=== PATIENT | female | born 1945 | race Caucasian/White ===

== ENCOUNTER 2020-07-23 12:06 | Inpatient (IN) | payer MEDICARE ==
[~2020-07-23] VITALS: Ht 165.1 cm; Wt 83.5 kg
[2020-07-23] MEDS ORDERED: Aspirin EC81 MG PO (12:18)
[2020-07-23 12:41] LABS: BASOPHILS ABSOLUTE AUTO 0.08 K/mm3 (0.00-0.23); BASOPHILS PERCENT AUTO 1 % (0-2); EOSINOPHILS ABSOLUTE AUTO 0.07 K/mm3 (0.00-0.68); EOSINOPHILS PERCENT AUTO 1 % (0-6); Hematocrit 26.7 % (33.0-51.0); Hemoglobin 8.1 g/dL (11.5-16.0); IMMATURE GRAN ABSOLUTE AUTO 0.05 K/mm3 (0.00-0.10); IMMATURE GRAN PERCENT AUTO 1 % (0-1); LYMPHOCYTES ABSOLUTE AUTO 0.78 K/mm3 (0.84-5.20); LYMPHOCYTES PERCENT AUTO 9 % (21-46); MONOCYTES ABSOLUTE AUTO 0.54 K/mm3 (0.16-1.47); MONOCYTES PERCENT AUTO 6 % (4-13); Mean Corpuscular HGB 27.7 pg (26.0-34.0); Mean Corpuscular HGB Conc 30.3 g/dL (31.5-36.5); Mean Corpuscular Volume 91 fL (80-100); Mean Platelet Volume 9.5 fL (9.1-12.4); NEUTROPHILS ABSOLUTE AUTO 7.38 K/mm3 (1.96-9.15); NEUTROPHILS PERCENT AUTO 83 % (41-73); Platelet Count 607 K/mm3 (150-400); RDW Coefficient Variation 17.4 % (11.7-14.2); RDW Standard Deviation 58.4 fL (35.1-46.3); Red Blood Cell Count 2.92 M/mm3 (3.80-5.20)
[2020-07-23 13:02] LABS: Alanine Aminotransfer (ALT/SGP 19 U/L (12-78); Albumin, Blood 2.8 g/dL (3.4-5.0); Albumin/Globulin Ratio 0.7 (0.8-1.8); Alk Phos 104 U/L (50-136); Anion Gap 9 mmol/L (6-16); Aspartate Aminotrans (AST/SGOT 15 U/L (12-37); Bilirubin, Total 0.2 mg/dL (0.1-1.0); Blood Urea Nitrogen 12 mg/dL (8-24); Bun/Creatinine Ratio 21.2 (12.0-20.0); CO2, Blood 24 mmol/L (21-32); Chloride, Blood 105 mmol/L (98-108); Creatinine, Blood 0.57 mg/dL (0.40-1.00); Globulin, Blood 4.1 g/dL (2.2-4.0); Glomerular Filtration Rate >60 (60-); Glucose, Blood 140 mg/dL (70-99); Potassium, Blood 3.3 mmol/L (3.5-5.5); Sodium, Blood 138 mmol/L (136-145); Total Protein, Blood 6.9 g/dL (6.4-8.2); Troponin I 0.063 ng/mL (0.000-0.040)
[2020-07-23 14:23] LABS: International Normalized Ratio 1.01; Prothrombin Time Results 10.8 Sec (9.7-11.5)
--- NOTE | 2020-07-23 16:36 | NUR ---
Echocardiogram completed.
[2020-07-23 16:40] LABS: Influenza A, PCR NEGATIVE (NEGATIVE); Influenza B, PCR NEGATIVE (NEGATIVE); Resp Syncytial Virus, PCR NEGATIVE (NEGATIVE); SARS-Cov-2 (COVID-19) PCR, MMC NEGATIVE (NEGATIVE)
[2020-07-23 16:47] LABS: Percent Saturation 5.5 % (15.0-50.0)
[2020-07-23] MEDS ORDERED: ERGO400 PO (21:28)
[2020-07-23] MEDS ORDERED: OMEP20ER PO (21:30)
--- NOTE | 2020-07-23 23:48 | NUR ---
ARRIVAL TO ICU 2 PT ARRIVED TO ICU 2 AT 2049 VIA ED BED AND TRANSFERED TO ICU BED VIA SLIDE SHEET. PT IMMEDIATLY NEEDED TO USE THE BEDPAN AND HAS REQUESTED A BED TORRE VERY FREQUENTLY. PT IS ALERT/ORIENTED X4 AND IS ABLE TO MAKE HER NEEDS KNOWN. SPO2 >98% ON 5L NC. AFEBRILE. AFIB NOTED WITH RATE 100-150; SBP 150-170; CHIQUITA THURSTON NOTIFIED AND NEW ORDERS PROVIDED FOR LOPRESSOR AND LISINOPRIL. NO CHEST PAIN, SHORTNESS OF BREATH, OR NAUSEA NOTED AT THIS TIME. PT REFUSES TO HAVE CRAMER CATH PLACED AND TOLERATES USING THE BEDPAN. KCL INFUSING VIA RT HAND. SEE ADMISSION ASSESSMENT FOR FULL ASSESSMENT.
[2020-07-24 03:28] LABS: BASOPHILS ABSOLUTE AUTO 0.08 K/mm3 (0.00-0.23); BASOPHILS PERCENT AUTO 1 % (0-2); EOSINOPHILS ABSOLUTE AUTO 0.15 K/mm3 (0.00-0.68); EOSINOPHILS PERCENT AUTO 2 % (0-6); Hematocrit 24.8 % (33.0-51.0); Hemoglobin 7.5 g/dL (11.5-16.0); IMMATURE GRAN ABSOLUTE AUTO 0.02 K/mm3 (0.00-0.10); IMMATURE GRAN PERCENT AUTO 0 % (0-1); LYMPHOCYTES ABSOLUTE AUTO 0.98 K/mm3 (0.84-5.20); LYMPHOCYTES PERCENT AUTO 13 % (21-46); MONOCYTES ABSOLUTE AUTO 0.55 K/mm3 (0.16-1.47); MONOCYTES PERCENT AUTO 7 % (4-13); Mean Corpuscular HGB 27.5 pg (26.0-34.0); Mean Corpuscular HGB Conc 30.2 g/dL (31.5-36.5); Mean Corpuscular Volume 91 fL (80-100); NEUTROPHILS ABSOLUTE AUTO 5.96 K/mm3 (1.96-9.15); NEUTROPHILS PERCENT AUTO 77 % (41-73); Platelet Count 523 K/mm3 (150-400); RDW Coefficient Variation 17.1 % (11.7-14.2); RDW Standard Deviation 56.7 fL (35.1-46.3); Red Blood Cell Count 2.73 M/mm3 (3.80-5.20); White Blood Cell Count 7.74 K/mm3 (4.00-11.30)
[2020-07-24 04:00] LABS: Anion Gap 6 mmol/L (6-16); Blood Urea Nitrogen 10 mg/dL (8-24); Bun/Creatinine Ratio 17.2 (12.0-20.0); CHOL/HDL RATIO 4.6; CO2, Blood 30 mmol/L (21-32); Calcium, Blood 8.7 mg/dL (8.5-10.1); Chloride, Blood 104 mmol/L (98-108); Cholesterol 157 mg/dL (50-200); Creatinine, Blood 0.58 mg/dL (0.40-1.00); Glomerular Filtration Rate >60 (60-); Glucose, Blood 102 mg/dL (70-99); HDL Cholesterol 34 mg/dL (>39); LDL/HDL RATIO 2.9; Low Density Lipoprotein Chol 99 mg/dL (0-110); Magnesium, Blood 1.6 mg/dL (1.6-2.4); Potassium, Blood 2.6 mmol/L (3.5-5.5); Sodium, Blood 140 mmol/L (136-145); Triglycerides 120 mg/dL (30-160); Very Low Density Lipoprot Chol 24 mg/dL (6-32)
--- NOTE | 2020-07-24 06:06 | NUR ---
CALLED DR THA ALMAZAN NOTIFIED OF PT POTASSIUM LAB OF 2.6. NEW ORDERS PROVIDED FOR KCL 40MEQ IV ONCE.
--- NOTE | 2020-07-24 06:15 | NUR ---
END OF SHIFT SUMMARY PT SLEPT ON AND OFF SINCE ARRIVAL TO ICU, IS ALERT/ORIENTED X4, AND IS ABLE TO MAKE HER NEEDS KNOWN BY USING CALL LIGHT APPROPRIATLY. SPO2 >95% ON 4L NC. AFEBRILE. HR 70-100 SINCE ADMINISTRATION OF LOPRESSOR. SBP 120-150 SINCE ADMINISTRATION OF LISINOPRIL. PT ABLE TO ASSIST WITH REPOSITIONING AND TURNING TO PLACE BEDPAN UNDER HER. PT PULLED OUT RT HAND IV, 22G IN THE LT HAND STILL IN PLACE. WILL REPORT TO AM RN WHEN AVAILABLE.
--- NOTE | 2020-07-24 09:10 | NUR ---
ASSUMED CARE REPORT FROM EVANGELIST SWANSON. PT RESTING IN BED. A&O X4. ANSWERS QUESTIONS APPROPRIATELY, FOLLOWS COMMANDS. PT REPORTS SOB RESOLVED. SPEAKING IN FULL SENTANCES. LUNGS CLEAR. TITRATED O2 FROM 4L TO 2L, WHEN PLACED ON RA, O2 SATS DECREASED TO MID 80'S. 2+ EDEMA TO BLE. PT REPORTS SOB AND LEG SWELLING STARTED APPROX 3 MONTHS AGO. ECHO COMPLETE ON PREVIOUS SHIFT. JUANI APODACA AND DR YU ROUNDED, PLAN FOR POSSIBLE ANGIOGRAM AND OUTPT TAVR. PT STATUS CHANGED TO MED c TELE. WILL CONTINUE TO DIURESE AND TITRATE O2. K+ ALSO BEING REPLACED. WILL CONTINUE TO MONITOR.
--- NOTE | 2020-07-24 15:26 | NUR ---
TRANSFER TO MEDICAL FLOOR REPORT GIVEN TO DEACON SWANSON. PT DIURESED THIS SHIFT, 2100 ML URINE OUT. LUNGS CLEAR. CONTINUES ON 2L VIA NC. NO ACUTE CHANGES TO ASSESSMENT. ALL BELONGINGS TRANSFERRED c PT.
[2020-07-24 16:24] LABS: Hematocrit 27.4 % (33.0-51.0); Hemoglobin 7.7 g/dL (11.5-16.0)
--- NOTE | 2020-07-24 18:16 | NUR ---
moved here from icu, a+o, came on 2L of but stated she was on ra at home decreased to 0 has dropped below 90 afew times but comes right back up when takes a deep breath, will pass on to noc shift to continue to monitor and adjust, call light in reach, saline locked, bed in low position, edema from knees down, pt stated her legs have been swollen for some time and are currently doing better than they have for weeks, will continue to monitor and treat until share bsr with noc nurse and pt
--- NOTE | 2020-07-25 05:28 | NUR ---
PT IS PLEASANT, ON RA, 1-ASSIST TO RESTROOM WITH FWW. PT IS FORGETFUL, AWAKENING THIS SHIFT UNSURE OF WHERE SHE WAS, TAKING OFF TELE MONITOR. TELE IN SR. AWAITING [facility] SAMPLE AT THIS TIME.
[2020-07-25 06:03] LABS: Hematocrit 23.8 % (33.0-51.0); Hemoglobin 7.1 g/dL (11.5-16.0); Mean Corpuscular HGB Conc 29.8 g/dL (31.5-36.5); Mean Corpuscular Volume 91 fL (80-100); Mean Platelet Volume 9.6 fL (9.1-12.4); Platelet Count 511 K/mm3 (150-400); RDW Standard Deviation 56.9 fL (35.1-46.3); Red Blood Cell Count 2.63 M/mm3 (3.80-5.20)
[2020-07-25 06:19] LABS: Anion Gap 5 mmol/L (6-16); Blood Urea Nitrogen 14 mg/dL (8-24); Bun/Creatinine Ratio 23.6 (12.0-20.0); CO2, Blood 31 mmol/L (21-32); Calcium, Blood 8.5 mg/dL (8.5-10.1); Chloride, Blood 104 mmol/L (98-108); Creatinine, Blood 0.59 mg/dL (0.40-1.00); Glomerular Filtration Rate >60 (60-); Glucose, Blood 107 mg/dL (70-99); Potassium, Blood 3.1 mmol/L (3.5-5.5); Sodium, Blood 140 mmol/L (136-145)
--- NOTE | 2020-07-25 12:40 | NUR ---
Met with pt today, she is alert, pleasant and cooperative with care. She is newly diagnosed with CHF, and admittedly unfarmiliar with this diagnosis. She states she began to notice she was feeling an increase in SOB over the past year or so. But she put off going to the doctor, as she had been doing for over. Her nurse Edgardo states he notes some increased confusion this am, and wonders if there is a baseline of dementia present. Pt's states he has seen changes in his , such as increased SOB, increased napping, decreased energy level for several months. Gave pt a CHF patient teach book, and we reviewed it together. She admits to knowing very little about what CHF is. Pt is scheduled for angiogram today. Plan to see pt again tomorrow.
--- NOTE | 2020-07-25 13:11 | NUR ---
PT ARRIVED FROM [facility] VIA BED ACCOMPANIED BY STAFF. BEDSIDE REPORT RECEIVED. R GRION VENOUS SITE SOFT WITH NO HEMATOMA. R TR BAND IN PLACE, 10ML OF AIR, NO BLEEDING OR HEMATOMA NOTED AT THIS TIME. PT IS A&OX4, DENIES PAIN, ORIENTED TO ROOM/CALL LIGHT.
--- NOTE | 2020-07-25 16:41 | NUR ---
TR BAND BEING RECOVERED NOW, NO ACTIVE BLEEDING NOTED AT THE SITE, PULSES PRESENT. WILL CONTINUE TO MONITOR
--- NOTE | 2020-07-25 18:55 | NUR ---
SHIFT NOTE PT ARRIVED FROM MEDICAL FLOOR POST ANGIO. PT WITH TR BAND TO RT WRIST THAT IS RECOVERED, NO ACTIVE BLEEDING. PULSES INTACT. RT GROIN SITE COVERED WITH TEGADERM AND ZSTITCH IN PLACE. SMALL HEMATOMA NOTED TO RT WRIST ACCESS SITE. NO HEMATOMA NOTED TO RT GROIN SITE, NO ACTIVE BLEEDING, SITE IS SOFT TO PALPATION. PT ALERT, ORIENTED X3, PT REPEATS QUESTIONS OFTEN. PT USING BEDPAN, ROLLS WELL, NEEDS REDIRECTION TO NOT USE RT ARM TO REPOSITION. VSS.
--- NOTE | 2020-07-26 05:30 | NUR ---
ASSUMED CARE OF PATIENT AT APPROXIMATELY 1900 FROM GERDA Tellez RN. PATIENT ALERT AND ORIENTED X4; FORGETFUL AT TIMES. PATIENT RECENT ANGIOGRAM; ACCESS TO RIGHT GROIN AND RIGHT RADIAL; TR BAND REMOVED AT START OF SHIFT AND TEGADERM PLACED; GROIN SITE Z STITCH REMOVED AND TEGADERM PLACED; NO S/S OF ACTIVE BLEEDING, NEW HEMATOMA OR BRUISING NOTED. PATIENT DENIES PAIN BUT REPORTS SHOULDER ACHE AND KNEE PAIN; REFUSED INTERVENTIONS. PATIENT DENIES NUMBNESS, TINGLING, DIZZINESS OR NAUSEA. IRREGULAR SB/SR ON TELE; OXYGEN SATURATION ABOVE 90% ON 2-3LPM VIA NC. PIV X2 S/L. PATIENT HAD GRAY STOOL AT START OF SHIFT; ONE ASSIST TO BATHROOM; 2X UNMEASURED VOIDS. PATIENT CURRENTLY RESTING IN BED; CALL LIGHT IN REACH; BEDIN LOWEST POSISTION; BED ALARM ON.
[2020-07-26 07:20] LABS: BASOPHILS ABSOLUTE AUTO 0.07 K/mm3 (0.00-0.23); BASOPHILS PERCENT AUTO 1 % (0-2); EOSINOPHILS ABSOLUTE AUTO 0.38 K/mm3 (0.00-0.68); EOSINOPHILS PERCENT AUTO 5 % (0-6); Hematocrit 26.1 % (33.0-51.0); Hemoglobin 7.9 g/dL (11.5-16.0); IMMATURE GRAN ABSOLUTE AUTO 0.02 K/mm3 (0.00-0.10); IMMATURE GRAN PERCENT AUTO 0 % (0-1); LYMPHOCYTES ABSOLUTE AUTO 0.79 K/mm3 (0.84-5.20); LYMPHOCYTES PERCENT AUTO 9 % (21-46); MONOCYTES ABSOLUTE AUTO 0.96 K/mm3 (0.16-1.47); MONOCYTES PERCENT AUTO 11 % (4-13); Mean Corpuscular HGB 27.3 pg (26.0-34.0); Mean Corpuscular HGB Conc 30.3 g/dL (31.5-36.5); Mean Corpuscular Volume 90 fL (80-100); Mean Platelet Volume 9.3 fL (9.1-12.4); NEUTROPHILS ABSOLUTE AUTO 6.29 K/mm3 (1.96-9.15); NEUTROPHILS PERCENT AUTO 74 % (41-73); Platelet Count 501 K/mm3 (150-400); RDW Coefficient Variation 16.4 % (11.7-14.2); RDW Standard Deviation 54.1 fL (35.1-46.3); Red Blood Cell Count 2.89 M/mm3 (3.80-5.20); White Blood Cell Count 8.51 K/mm3 (4.00-11.30)
[2020-07-26 07:42] LABS: Alanine Aminotransfer (ALT/SGP 16 U/L (12-78); Albumin, Blood 2.5 g/dL (3.4-5.0); Albumin/Globulin Ratio 0.7 (0.8-1.8); Alk Phos 88 U/L (50-136); Anion Gap 5 mmol/L (6-16); Aspartate Aminotrans (AST/SGOT 14 U/L (12-37); Bilirubin, Total 0.3 mg/dL (0.1-1.0); Blood Urea Nitrogen 14 mg/dL (8-24); Bun/Creatinine Ratio 24.3 (12.0-20.0); CO2, Blood 33 mmol/L (21-32); Calcium, Blood 8.6 mg/dL (8.5-10.1); Chloride, Blood 102 mmol/L (98-108); Creatinine, Blood 0.58 mg/dL (0.40-1.00); Globulin, Blood 3.8 g/dL (2.2-4.0); Glomerular Filtration Rate >60 (60-); Glucose, Blood 119 mg/dL (70-99); Potassium, Blood 3.1 mmol/L (3.5-5.5); Sodium, Blood 140 mmol/L (136-145); Total Protein, Blood 6.3 g/dL (6.4-8.2)
[2020-07-26 09:54] LABS: Stool Occult Blood Guaiac 1 Neg (Neg)
[2020-07-26] MEDS ORDERED: THERA-D2000 UNIT PO (11:11)
[2020-07-26] MEDS ORDERED: ATOR40TA PO (11:11)
[2020-07-26] MEDS ORDERED: FAMO20 PO (11:12)
[2020-07-26] MEDS ORDERED: FERSU300 PO (11:13)
[2020-07-26] MEDS ORDERED: FURO40 PO (11:13)
[2020-07-26] MEDS ORDERED: LISI5 PO (11:14)
[2020-07-26] MEDS ORDERED: METO25 PO (11:15)
[2020-07-26] MEDS ORDERED: SENN187 PO (11:16)
[2020-07-26] MEDS ORDERED: POTA10T PO (11:16)
--- NOTE | 2020-07-26 11:34 | NUR ---
DISCHARGE ORDERS REVIEWED WITH DR GARVIN AND DR LIZ R/T CARDIOLOGY FOLLOW UP AND POSSIBLE EVENT MONITOR MENTIONED IN THE CARDIOLOGY PROGRESS NOTE FROM 07/25/20. NO ORDERS FOR EVENT MONITOR AT THIS TIME. FACESHEET FAXED TO CARDIOLOGY OFFICE TO CALL PT TO SCHEDULE FOLLOW UP APPT INSTRUCTED FOR DISCHARGE, POSSIBLE LABS TO ORDER MENTIONED IN CARDIOLOGY NOTE. PT PROVIDED WITH INFORMATION TO ESTABLISH A PRIMARY CARE PROVIDER INCLUDING PHONE NUMBERS FOR [facility] AND [facility]. PT ENCOURAGED TO ESTABLISH PCP SOON POSSIBLE AND CALL CARDIOLOGY OFFICE FIRST THING ON TUESDAY MORNING TO MAKE A FOLLOW UP APPOINTMENT.
--- NOTE | 2020-07-26 15:21 | NUR ---
PT WAS UP TO BE DISCHARGED BUT AFTER ASSESSMENT BY RT FOR HOME OXYGEN WE DECIDED THAT SHE WOULD BENEFIT FROM STAYING TO BE EVALUATED BY PT AND OT. DISCUSSED WITH PATINET AND THEY AGREE THAT IT WOULD BE BENEFICIAL TO STAY AND BE EVALUATED AND POSSIBLY HAD A REFFERAL FOR HOME HEALTH AND OTHER RESOURCES. DISCHARGE WAS DISCONTINUED AND PATIENT WAS PUT BACK ON TELE. NO NEW COMPALINTS FROM THE PATIENT RIGHT NOW.
--- NOTE | 2020-07-26 15:31 | NUR ---
PHYSCIAL THERAPY IS AT BEDSIDE FOR EVALUATION.
--- NOTE | 2020-07-26 17:51 | NUR ---
Pt was preparing to go home today when she had an episode of dizziness and weakness, and increased SOB. Her discharge was delayed because of this. She was then seen by PT, with a new possiblity of SNF prior to home. Pt is disappointed, but understands and wants to have a safe discharge home.
--- NOTE | 2020-07-26 17:57 | NUR ---
SN WORKING WITH HERIBERTO Scott RN. WE ASSUMED CARE FOR PT AT APPROXIMATELY 0700. PATIENT IS A ALERT & ORIENTED X4, IS MILDLY FORGETFUL BUT ORIENTS EASILY. PT HAD A RECENT ANGIOGRAM WITH ACCESS IN THE RIGHT WRIST AND RIGHT GROIN. ARM BOARD REMAINED IN PLACE DURING SHIFT. TEGADERM IN PLACE AT WRIST AND GROIN. NO S/S OF ACTIVE BLEEDING HEMATOMA, OR BRUISING. PT ON TELE, HR IN THE 70'S WITH OCCASIONAL PACS AND PVCS. PATIENTS O2 SATURATIONS ARE >94% ON 2L NC. DYSPNEA WITH EXERTION. PT HAD AN OREDER OF A STOOL OCCULT THAT WAS NEGATIVE. PATIENT WAS UP FOR DISCHARGE BUT WHEN GETTING HER UP TO USE THE RESTROOM SHE BECAME VERY WEAK AND WAS UNABLE TO TRANSFER FROM THE [facility] WITHOUT 2 PERSON ASSISTANCE AND BECAME DYSPNEIC. RT CONSULT FOR HOME O2 AND RECOMMENDED 2L O2 AT HOME. DISCUSSED WITH PATIENT AND ABOUT HELP AT HOME AND THEY AGREED THAT THE PATIENT COULD STAY IN THE HOSPITAL AND BE EVALUATED BY PHYSCIAL THERAPY. PHYSCIAL THERAPIST RECOMMENDED HOME HEALTH. HOPEFULLY DISCHARGE TOMORROW. PT DENIES CHEST PAIN, NUMBNESS, TINGLING, AND ABDOMINAL PAIN. PT IS HAVING LEFT SHOULDER PAIN WHICH SHE STATES IS CHRONIC. SHE USUALLY TAKES IBUPROFEN AT HOME BUT WAS TOLD NOT TO TAKE IT ANYMORE. SHE WAS GIVE TYELNOL WITH SOME IMPROVEMENT OF PAIN AND INCREASED ROM OF THE LEFT SHOULDER. PATIENT IS RESTING IN BED, BED ALARM ON, AND BED IN LOWEST POSITION.
--- NOTE | 2020-07-26 18:00 | NUR ---
STUDENT NURSE CAPRI CARED FOR PT DURING SHIFT INCLUDING ASSESMENTS. ASSESMENTS REVIEWED BY THIS RN AND AGREE ON STUDENT NURSE FINDINGS.
--- NOTE | 2020-07-27 00:01 | NUR ---
REPORT GIVEN TO MADHURI SWANSON.
--- NOTE | 2020-07-27 00:18 | NUR ---
RESUMED CARE FOR THIS PATIENT AT THIS TIME
--- NOTE | 2020-07-27 05:35 | NUR ---
shift summary pt confused through night. hesistant with plan of care, uncooperative. bed alarm on. pt frequently attempting to get out of bed, but then doesnt know what she was getting out of bed for. sats >90% on 2lnc. tele nsr. skin intact. voiding to toilet with sba with walker. no pain. vss. call light within reach, bed in lowest position. will continue to monitor.
== END 2020-07-27 11:33 | disposition home health service (06) | DRG 280 ==
LOC: ER 12:06 → ERHOLD 19:16 → ICUE 19:16 → MEDS 07-24 15:24 → PCU 07-25 11:53
PROVIDERS: Emergency Medicine; Internal Medicine; Nurse Practitioner Acute Care; ADMIT Internal Medicine
PROC: 5A09357 Assistance with Respiratory Ventilation, Less than 24 Consecutive Hours, Continuous Positive Airway Pressure (ICD-10-PCS; 2020-07-23)
PROC: 4A023N8 Measurement of Cardiac Sampling and Pressure, Bilateral, Percutaneous Approach (ICD-10-PCS; principal; 2020-07-25)
PROC: B2111ZZ Fluoroscopy of Multiple Coronary Arteries using Low Osmolar Contrast (ICD-10-PCS; 2020-07-25)
DX: I11.0 Hypertensive heart disease with heart failure (principal); J96.01 Acute respiratory failure with hypoxia; I21.A1 Myocardial infarction type 2; I50.31 Acute diastolic (congestive) heart failure; I47.1 Supraventricular tachycardia; I35.0 Nonrheumatic aortic (valve) stenosis; Z66 Do not resuscitate; D50.9 Iron deficiency anemia, unspecified; I49.1 Atrial premature depolarization; D47.3 Essential (hemorrhagic) thrombocythemia; Z20.822 Contact with and (suspected) exposure to COVID-19; E87.6 Hypokalemia; I27.20 Pulmonary hypertension, unspecified; E66.01 Morbid (severe) obesity due to excess calories; I27.22 Pulmonary hypertension due to left heart disease; I25.10 Atherosclerotic heart disease of native coronary artery without angina pectoris; Z79.82 Long term (current) use of aspirin; Z87.891 Personal history of nicotine dependence; Z68.33 Body mass index [BMI] 33.0-33.9, adult; Z79.899 Other long term (current) drug therapy; Z71.3 Dietary counseling and surveillance
CPT/HCPCS: 0241U; 36415; 71045; 71260; 76937; 80048; 80053; 80061; 82272; 82607; 82728; 82746; 82947; 83036; 83540; 83550; 83615; 83735; 83880; 84484; 85014; 85018; 85025; 85027; 85379; 85610; 85730; 93005; 93010; 93306; 93460; 94660; 94760; 94761; 96365; 96366; 96372-59; 96375; 96376; 97116; 97162; 97530; 99152; 99153; 99285-25; A9270; C1751; C1769; C1894; J1644; J1650; J1940; J2250; J2916; J3010; J3475; J3480; J7030; J7040; J7050; Q9967